=== PATIENT | female | born 1985 ===

== ENCOUNTER 2018-11-02 16:24 | Outpatient (CLI) | payer OTHER ==
[~2018-11-02] VITALS: Ht 157.5 cm; Wt 59.0 kg
== END 2018-11-02 16:45 | disposition home or self-care (01) ==
LOC: OFIC 805 16:24
DX: R49.0 Dysphonia (principal); J01.80 Other acute sinusitis; J04.0 Acute laryngitis

== ENCOUNTER 2018-11-09 18:06 | Outpatient (CLI) | payer OTHER ==
[~2018-11-09] VITALS: Ht 152.4 cm; Wt 59.0 kg
== END 2018-11-09 18:18 | disposition home or self-care (01) ==
LOC: OFIC 805 18:06
DX: J35.8 Other chronic diseases of tonsils and adenoids (principal)